=== PATIENT | male | born 1975 | race Native Hawaiian/Other Pacific Islander ===

== ENCOUNTER 2017-02-02 14:15 | Inpatient (IN) | payer OTHER ==
[~2017-02-02] VITALS: Ht 170.2 cm; Wt 80.8 kg
[2017-02-02 14:50] VITALS: BP 129/97; TEMP 100.9; Ht 170.2 cm; Wt 80.8 kg
--- NOTE | 2017-02-02 15:15 | NUR ---
ORTHOSTATIC VITAL SIGNS: LAYIN/92,109,98% SITTING UP: 129/97, 116,100% STANDIN/91,131,95% ([employer] ANALYST NOTIFIED OF RESULTS)
[2017-02-02 16:00] VITALS: BP 129/97; TEMP 100.9
[2017-02-02 17:16] LABS: PLATELET COUNT 127 K/uL (142-355)
[2017-02-02 17:50] LABS: POTASSIUM 3.1 mmol/L (3.6-5.2); SODIUM 132 mmol/L (136-145)
[2017-02-02] MEDS ORDERED: LIPITOR40 MG PO (18:42)
[2017-02-02] MEDS ORDERED: CARV3.12 PO (18:43)
[2017-02-02] MEDS ORDERED: CYCL10TA35 PO (18:43)
[2017-02-02] MEDS ORDERED: MOBIC15 MG PO (18:45)
[2017-02-02] MEDS ORDERED: PRED10TA27 PO (18:48)
[2017-02-02] MEDS ORDERED: VALSARTAN80 MG PO (18:49)
[2017-02-02 20:00] VITALS: BP 135/91; TEMP 99.6
[2017-02-03] VITALS: BP 124/82; TEMP 98.8
[2017-02-03 04:00] VITALS: BP 122/88; TEMP 98.1
[2017-02-03 06:53] LABS: PLATELET COUNT 119 K/uL (142-355)
[2017-02-03 07:16] LABS: POTASSIUM 2.9 mmol/L (3.6-5.2); SODIUM 136 mmol/L (136-145)
[2017-02-03 08:00] VITALS: BP 120/85; TEMP 98.3
[2017-02-03 12:00] VITALS: BP 122/92; TEMP 98.2
[2017-02-03 16:00] VITALS: BP 131/93; TEMP 98.6
[2017-02-03 20:00] VITALS: BP 151/100; TEMP 98.7
[2017-02-04] VITALS: BP 106/80; TEMP 98.8
[2017-02-04 04:00] VITALS: BP 113/80; TEMP 98.8
[2017-02-04 05:17] LABS: PLATELET COUNT 132 K/uL (142-355)
[2017-02-04 06:04] LABS: POTASSIUM 3.6 mmol/L (3.6-5.2); SODIUM 136 mmol/L (136-145)
[2017-02-04 08:00] VITALS: BP 127/83; TEMP 98
[2017-02-04 12:00] VITALS: BP 123/94; TEMP 98.4
[2017-02-04 15:52] VITALS: BP 134/90; TEMP 98.8
[2017-02-04 20:28] VITALS: BP 140/91; TEMP 98.1
[2017-02-05] VITALS: BP 129/87; TEMP 98.6
[2017-02-05 04:00] VITALS: BP 143/93; TEMP 97.6
[2017-02-05 05:01] LABS: PLATELET COUNT 153 K/uL (142-355)
[2017-02-05 08:00] VITALS: BP 144/94; TEMP 98.8
[2017-02-05 08:16] LABS: POTASSIUM 3.3 mmol/L (3.6-5.2); SODIUM 142 mmol/L (136-145)
[2017-02-05 12:00] VITALS: BP 142/96; TEMP 98
[2017-02-05 16:00] VITALS: BP 136/98; TEMP 98.3
[2017-02-05 20:00] VITALS: BP 144/97; TEMP 98.9
[2017-02-06] VITALS: BP 144/95; TEMP 98
[2017-02-06 04:00] VITALS: BP 134/93; TEMP 97.9
[2017-02-06 05:58] LABS: PLATELET COUNT 150 K/uL (142-355)
[2017-02-06 06:17] LABS: POTASSIUM 3.5 mmol/L (3.6-5.2); SODIUM 138 mmol/L (136-145)
[2017-02-06 08:16] VITALS: BP 141/96; TEMP 97.5
--- NOTE | 2017-02-06 11:15 | NUR ---
D/C ORDERS RECIEVED. IV D/C'D. TELE D/C'D. D/C INSTRUCTIONS GIVEN. PT INSTRUCTED TO MAKE FU WITH PCP. PT HAS NO FUTHER QUESTIONS. PT WAITING ON RIDE TO GET HERE.
--- NOTE | 2017-02-06 11:45 | NUR ---
PT'S RIDE HERE AT THIS TIME. PT AMBULATED OUT W NO PROBLEMS.
== END 2017-02-06 11:45 | disposition home or self-care (01) | DRG 372 ==
LOC: MED/SURG 14:15
PROVIDERS: ADMIT Emergency Medicine
DX: A04.8 Other specified bacterial intestinal infections (principal); J84.9 Interstitial pulmonary disease, unspecified; B34.9 Viral infection, unspecified; E86.0 Dehydration; I95.1 Orthostatic hypotension; Z95.0 Presence of cardiac pacemaker; R00.0 Tachycardia, unspecified; J44.9 Chronic obstructive pulmonary disease, unspecified; E11.9 Type 2 diabetes mellitus without complications; I10 Essential (primary) hypertension; E87.5 Hyperkalemia
CPT/HCPCS: 36415; 80053; 81000; 82948; 83735; 85027; 86318; 87015; 87045; 87205; 87324; 87328; 87329; 87449; 87493; 87899; 93005; 96365; 96366; 96375; J1885; J3480